=== PATIENT | male | born 2005 | race Caucasian/White ===

== ENCOUNTER 2024-03-02 06:31 | Emergency (ER) | payer SELFPAY ==
[2024-03-02 06:39] VITALS: BP 104/62
--- NOTE | 2024-03-02 08:36 | ED.GENMED ---
History of Present Illness
General
Chief Complaint: Eye Problems
Source: patient
Exam Limitations: none
Time Seen by Provider: 03/02/24 07:59
Nursing documentation reviewed up to this point in time: agreed with
History of Present Illness
History of Present Illness:
Patient presents ED secondary to sudden onset of left eye pain when he woke up from sleep this morning. Denies any symptoms when he first went to sleep. However, patient does work as a welder/fabricator, and has had history of 'dark flash' which has caused
similar symptoms, including 3 weeks ago, which resolved spontaneously after rest. Denies direct trauma. Denies foreign body sensation. Denies blurred vision. Denies dizziness. Denies headache. Patient does state that he wears protective eye
gear when he works.
Review of Systems
Review of Systems
Allergies reviewed?: Yes
All Other Systems: ROS reviewed and negative except as documented in HPI and ROS
Constitutional: Reports no symptoms
EENT: Reports other (eye pain)
Musculoskeletal: Reports no symptoms
Skin: Reports no symptoms
Neurological: Reports no symptoms; Denies dizzy or headache
Phy Exam
Physical Exam
Physical Exam:
Physical Exam
General: no apparent distress, not acutely ill. afebrile
Head: nc/at. eomi. Left eye: mild conjunctival erythema noted, without obvious FB. no discharge. negative fluorescein dye uptake
Neck: supple. no meningeal signs.
Neuro: alert and oriented. no focal neurological deficits
Skin: no rash
Psychiatric: well kept. interactive and cooperative
Extremities: no edema. no calf tenderness.
Course
Orders/Labs/Results
Orders:
Orders
03/02/24 09:29
Visual Acuity- Treatment ONCE
Vital Signs
Initial and Last Documented VS:
Initial Vital Signs
Temp Pulse Resp BP Pulse Ox
98.4 F 56 20 104/62 100
03/02/24 06:39 03/02/24 06:39 06/25/24 06:39 03/02/24 06:39 03/02/24 06:39
Last Documented Vital Signs
Temp Pulse Resp BP Pulse Ox
98.4 F 56 20 104/62 100
03/02/24 06:39 03/02/24 06:39 03/02/24 06:39 03/02/24 06:39 03/02/24 06:39
MDM/Problems Addressed
MDM/Problems Addressed:
History exam consistent with likely mild nonspecific conjunctivitis from exposure at work. No evidence of corneal abrasion no any other abnormal findings on exam. No indication for antibiotics at this time. Patient will be referred to
ophthalmology for an outpatient consultation.
*Critical Care Note
Total Time (30-74mins, 75-104mins- exclusive of procedures): Not Applicable
ED Attending Note
-
Portions of this chart may have been created with voice recognition software.� Occasional wrong word or��sound alike� substitutions may have occurred due to the inherent limitations of voice recognition software.
Discharge Plan
Departure
Patient Disposition: Home (Routine Discharge)
Date of Disposition: 03/02/24
Time of Disposition: 09:28
Patient with high blood pressure during this ER visit?: No
Condition: Good
Discharge Problem:
Conjunctivitis
Instructions: Conjunctivitis (Noninfectious Pinkeye) (DC)
Referrals:
Kade Tello MD [Active] -
Diana Lomax CRNP [Family Provider] -
Activity Restrictions/Additional Instructions:
As discussed, please follow-up with referred supply chain analyst for further evaluation and treatment.
Interventions
Interventions:
*Risk Screen - Suicide Last Done: 03/02/24 06:39
*Neglect/Abuse Screening Last Done: 03/02/24 06:39
ED- Fall Risk Assessment Last Done: 03/02/24 10:11
*Nursing Disposition Last Done: 03/02/24 10:11
Discharge Date and Time
Discharge Date/Time: 03/02/24 10:13
Print Language: DANISH
== END 2024-03-02 10:13 | disposition home or self-care (01) ==
LOC: EMR 06:31
PROVIDERS: EMERGENCY PHYSICIAN Emergency Medicine; FAMILY PHYSICIAN Nurse Practitioner Family
DX: H10.9 Unspecified conjunctivitis (principal); H57.12 Ocular pain, left eye; F90.9 Attention-deficit hyperactivity disorder, unspecified type; Z86.16 Personal history of COVID-19
CPT/HCPCS: 99282